=== PATIENT | male | born 1945 | race Caucasian/White ===

== ENCOUNTER 2017-08-18 15:30 | Emergency (ER) | payer OTHER, MEDICARE ==
[~2017-08-18] VITALS: Ht 185.4 cm; Wt 95.0 kg
[2017-08-18 15:34] VITALS: BP 130/74; PULSE 90; RESP 20; TEMP 98.7; O2SAT 95
[2017-08-18] MEDS ORDERED: RESP: ALBUTEROL 2.5 MG/IPRATROPIUM 0.5 MG NEB (SCH) NEB ONE (17:00)
--- NOTE | 2017-08-18 17:09 | PD ---
HPI Chief Complaint: Fall Time Seen by Provider: 16:45 Travel History International Travel<30 days: No Contact w/Intl Traveler<30days: No Traveled to known affect area: No History of Present Illness HPI This patient has history of major stroke that has left him with baseline left- sided paresis. He is wheelchair-bound. However his motorized wheelchair does not fit into his bathroom so he must walk into the bathroom without it. Patient had a fall today and lost his balance and stumbled without his wheelchair. He says that he struck his head. He denies LOC. He takes a daily aspirin. His says that the [place] physician wanted him to get a CT of his brain. He has shrapnel from [place] and not eligible for MRI. Symptom severity is moderate. He scraped up his upper and lower leg but no bony pain. Duration one day. No alleviating factors. No exacerbating factors. PFSH Social History Alcohol Use: No Tobacco Use: Yes Substance Use: No Allergies-Medications (Allergen,Severity, Reaction): Coded Allergies: diazepam (Verified Allergy, Unknown, 08/18/17) Reported Meds & Prescriptions Reported Meds & Active Scripts Active Reported Humulin N Inj (Insulin Human NPH) 1,000 Unit/10 Ml Vial Unknown Dose SQ Humulin N Inj (Insulin Human NPH) 1,000 Unit/10 Ml Vial 1 Units SQ Metformin (Metformin HCl) 1,000 Mg Tab 1,000 Mg PO DAILY With a meal Bupropion HCl 100 Mg Tab 100 Mg PO HS Aspirin 81 Mg Chew 81 Mg CHEW DAILY Metoprolol Tartrate 50 Mg Tab 50 Mg PO DAILY Fluoxetine (Fluoxetine HCl) 20 Mg Capsule 20 Mg PO DAILY Mirtazapine 45 Mg Tab 45 Mg PO HS Lisinopril 40 Mg Tab 40 Mg PO DAILY Review of Systems General / Constitutional: No: Fever Eyes: No: Visual changes HENT: No: Headaches Cardiovascular: No: Chest Pain or Discomfort Respiratory: No: Shortness of Breath Gastrointestinal: No: Abdominal Pain Genitourinary: No: Dysuria Musculoskeletal: Positive: Weakness, No: Pain Skin: No Rash Neurologic: Positive: Weakness Psychiatric: No: Depression Endocrine: No: Polydipsia Hematologic/Lymphatic: No: Easy Bruising Physical Exam Narrative GENERAL: Well-nourished, well-developed patient in no apparent distress. SKIN: Focused skin assessment reveals no rash and nodules. Skin is Warm and dry. HEAD: Atraumatic. Normocephalic. EYES: Pupils equal and round. No scleral icterus. No injection or drainage. ENT: No nasal bleeding or discharge. Mucous membranes pink and moist. NECK: Trachea midline. No JVD. CARDIOVASCULAR: Regular rate and rhythm. No murmur appreciated. RESPIRATORY: No accessory muscle use. Minor expiratory wheezing breath sounds equal bilaterally. GASTROINTESTINAL: Abdomen soft, non-tender, nondistended. Hepatic and splenic margins not palpable. MUSCULOSKELETAL: Left upper extremity is contracted. No clubbing. No cyanosis. No edema. NEUROLOGICAL: Awake and alert. No obvious cranial nerve deficits. Motor exam reveals paralysis of the left arm and major weakness of the left leg. Normal speech. PSYCHIATRIC: Appropriate mood and affect; insight and judgment normal. Data Data Last Documented VS Vital Signs Date Time Temp Pulse Resp B/P (MAP) Pulse Ox O2 Delivery O2 Flow Rate FiO2 08/18/17 18:51 88 20 137/86 (103) 98 Room Air 08/18/17 15:[address] Brain W/O Iv Contrast(Rout) (08/18/17 ) Albuterol-Ipratropium Neb (Duoneb Neb) (08/18/17 17:00) MDM Medical Decision Making Medical Screen Exam Complete: Yes Emergency Medical Condition: Yes Medical Record Reviewed: Yes Differential Diagnosis Contusion, concussion, COPD Narrative Course I have reviewed the patient's electronic medical record. Patient has COPD and has mild wheezing. He still continues to smoke. He requests a nebulizer treatment which we provided Brain CT shows encephalomalacia where his old stroke is but nothing new or acute Patient is at neurologic baseline He had a fall trying to navigate a paralyzed leg without his wheelchair in the bathroom I do not think this requires extensive neurologic or metabolic workup Stable for outpatient follow-up with his [facility] Diagnosis Primary Impression: Fall Qualified Codes: W19.XXXA - Unspecified fall, initial encounter Additional Impressions: History of stroke with residual deficit Head injury Qualified Codes: S09.90XA - Unspecified injury of head, initial encounter Additional Instructions: The patient was advised to follow up with their physician and return if they worsen. Med/Other Pt SpecificInfo: Other Disposition: DISCHARGE HOME Condition: Stable Oliver Monreal MD Aug 18, 2017 17:09
[2017-08-18] MEDS ORDERED: FLUO20CA12 PO (17:17)
[2017-08-18] MEDS ORDERED: INSU100V3 SQ (17:17)
[2017-08-18] MEDS ORDERED: METO50TA PO (17:17)
[2017-08-18] MEDS ORDERED: LISI40TA PO (17:17)
[2017-08-18] MEDS ORDERED: ASPI-516 CHEW (17:17)
[2017-08-18] MEDS ORDERED: BUPR100T4 PO (17:17)
[2017-08-18] MEDS ORDERED: MIRT45TA PO (17:17)
[2017-08-18] MEDS ORDERED: METF1000 PO (17:17)
--- NOTE | 2017-08-18 17:49 | RADRPT ---
EXAM DATE/TIME: 08/18/2017 17:36 [facility] COMPARISON: No previous studies available for comparison. INDICATIONS : Fall yesterday, hit head. RADIATION DOSE: 62.44 CTDIvol (mGy) MEDICAL HISTORY : Chronic obstructive pulmonary disease. Cerebrovascular disease. Fallen 6 times in the past month. CV A SURGICAL HISTORY : None. ENCOUNTER: Initial ACUITY: 2 days PAIN SCALE: 8/10 LOCATION: cranial TECHNIQUE: Multiple contiguous axial images were obtained of the head. Using automated exposure control and adj ustment of the mA and/or kV according to patient size, radiation dose was kept as low as reasonably a chievable to obtain optimal diagnostic quality images. DICOM format image data is available electro nically for review and comparison. FINDINGS: There is a large area of encephalomalacia involving the right frontal and parietal lobes with ex vacuo change involving the right lateral ventricle. There is no acute hemorrhage, mass effect or mid line shift. No extra-axial fluid collections are identified. The posterior fossa brainstem remain unr emarkable. The bone windows are within normal limits. CONCLUSION: 1. No acute hemorrhage, mass or evidence of acute infarction. 2. Large area of encephalomalacia involving the right middle cerebral artery territory most character istic of remote CVA. Reggie Gallardo MD on August 18, 2017 at 17:45 Board Certified Radiologist. This report was verified electronically.
[2017-08-18 18:51] VITALS: BP 137/86; PULSE 88; RESP 20; O2SAT 98
== END 2017-08-18 19:24 | disposition home or self-care (01) ==
LOC: PHED 15:30
DX: S09.90XA Unspecified injury of head, initial encounter (principal); I69.30 Unspecified sequelae of cerebral infarction; J44.9 Chronic obstructive pulmonary disease, unspecified; W01.10XA Fall on same level from slipping, tripping and stumbling with subsequent striking against unspecified object, initial encounter; Y92.002 Bathroom of unspecified non-institutional (private) residence as the place of occurrence of the external cause; Z72.0 Tobacco use; Z99.3 Dependence on wheelchair; Z88.8 Allergy status to other drugs, medicaments and biological substances; Z79.899 Other long term (current) drug therapy
CPT/HCPCS: 70450; 94664; 99283

== ENCOUNTER 2018-04-08 21:03 | Observation (INO) ==
[2018-04-08 21:21] VITALS: TEMP 97.8
--- NOTE | 2018-04-08 21:42 | XR ---
EXAM DATE: 04/08/2018 9:36 PM EST AGE/SEX: 72 years / Male INDICATIONS: Chest pain. CLINICAL DATA: This is the patient's subsequent encounter. Patient reports that signs and symptoms h ave been present for 1 day and indicates a pain score of 6/10. MEDICAL/SURGICAL HISTORY: None. None. COMPARISON: No prior exams available for comparison. FINDINGS: Lungs are symmetrically aerated. There is an ill-defined opacity in the right lower lung which may re present an infiltrate. The left lung is clear. The heart is normal in size. Both hemidiaphragms well delineated. Multiple metallic BBs project over the left upper quadrant. CONCLUSION: Small nonconsolidative infiltrate right lower lung. Electronically signed by: Kenny Romero MD 04/08/2018 9:41 PM EST
[2018-04-08 21:50] LABS: Baso % (Auto) 0.5 % (0.0-2.0); Eos # (Auto) 0.1 th/mm3 (0.0-0.4); Eos % (Auto) 1.7 % (0.0-4.0); Hematocrit 36.4 % (39.0-51.0); Lymph # (Auto) 1.7 th/mm3 (1.0-4.8); Mean Corpuscular HGB Conc 35.8 % (32.0-36.0); Mean Corpuscular Hemoglobin 29.4 pg (27.0-34.0); Mean Corpuscular Volume 82.1 fL (80.0-100.0); Mean Platelet Volume 7.1 fL (7.0-11.0); Mono # (Auto) 0.5 th/mm3 (0.0-0.9); Mono % (Auto) 6.7 % (0.0-8.0); Neut # (Auto) 5.7 th/mm3 (1.8-7.7); Neut % (Auto) 70.1 % (16.0-70.0); Platelet Count 278 th/mm3 (150-450); Red Blood Count 4.43 mil/mm3 (4.50-5.90); Red Cell Distribution Width 13.9 % (11.6-17.2); White Blood Count 8.1 th/mm3 (4.0-11.0)
--- NOTE | 2018-04-08 21:56 | ED ---
HPI General Chief complaint: Chest Pain Stated complaint: chest pain/evac Time Seen by Provider: 04/08/18 21:06 History of Present Illness HPI narrative: Patient is 72-year-old male with a history of diabetes sided deficits presents emergency department for evaluation of chest tightness that started in the center of his chest about an hour prior to arrival. Family member at home gave family members nitroglycerin to the patient which initially relieved his chest pain. EMS reported that on arrival the patient's blood pressure was quite low 60/40 but with some gentle fluid resuscitation is normalized. EMS speculated that the low blood pressure was transient from nitroglycerin administration. They also administered 325 aspirin prior to arrival. Patient states is never had pain like this before, denies a history of high blood pressure high cholesterol. He states never had a stress test or cardiac catheterization for. He was never told he had heart murmur. No shortness of breath no dizziness. No extremity pain no back pain. Symptoms moderate, resolved, associated signs symptoms in context as above. Related Data Home Medications Medication Instructions Recorded Confirmed aspirin [Aspir-81] 81 mg PO DAILY 04/08/18 04/08/18 duloxetine 60 mg PO DAILY 04/08/18 04/08/18 guaifenesin 400 mg PO DAILY PRN 04/08/18 04/08/18 hydralazine 50 mg 04/08/18 melatonin 3 mg PO HS PRN 04/08/18 04/08/18 metformin 500 mg PO BID 04/08/18 04/08/18 mirtazapine 45 mg PO HS 04/08/18 04/08/18 nitroglycerin 0.4 mg SUBLINGUAL Q5-15M PRN 04/08/18 04/08/18 omeprazole 20 mg PO DAILY 04/08/18 04/08/18 quetiapine mg PO HS 04/08/18 Allergies Allergy/AdvReac Type Severity Reaction Status Date / Time diazepam Allergy Unknown Agitation Verified 04/08/18 21:22 Review of Systems ROS: all other systems reviewed are negative [facility] Family History Family History Other Family history non-contributory Social History Social History Substance History: No History of Abuse Second Hand Smoke Exposure: No Smoking Status: Current every day smoker Tobacco Type: Cigarettes How Often Do You Have a Drink Containing Alcohol: Never Recent Travel in [facility] within the Last 8 Weeks: No Recent Out of Country Travel within the Last 8 Weeks: No Immunization History Tetanus Immunization: <5 Years Exam Narrative Exam Narrative: GENERAL: Well-developed well-nourished, no obvious distress. SKIN: Focused skin assessment warm/dry. HEAD: Atraumatic. Normocephalic. EYES: Pupils equal and round. No scleral icterus. No injection or drainage. ENT: No nasal bleeding or discharge. Mucous membranes pink and moist. NECK: Trachea midline. No JVD. CARDIOVASCULAR: Regular rate and rhythm. No murmur appreciated. RESPIRATORY: No accessory muscle use. Clear to auscultation. Breath sounds equal bilaterally. GASTROINTESTINAL: Abdomen soft, non-tender, nondistended. Hepatic and splenic margins not palpable. MUSCULOSKELETAL: No obvious deformities. No clubbing. No cyanosis. No edema. NEUROLOGICAL: Awake and alert and oriented. Cranial nerves II through XII are grossly intact and nonfocal. Patient is chronic contracture of the left upper extremity and is unable to use his extremity, he also has significant weakness of left lower extremity. PSYCHIATRIC: Appropriate mood and affect; insight and judgment normal. Course Initial Documented Vital Signs Temperature 97.8 F 04/08/18 21:14 Pulse Rate 97 H 04/08/18 21:14 Respiratory Rate 18 04/08/18 21:14 Blood Pressure 121/84 04/08/18 21:14 Pulse Oximetry 95 04/08/18 21:14 Last Documented Vital Signs Temperature 97.8 F 04/08/18 21:14 Pulse Rate 65 04/09/18 02:00 Respiratory Rate 20 04/09/18 03:44 Blood Pressure 118/62 04/09/18 03:44 Pulse Oximetry 96 04/09/18 03:44 Medical Decision Making [facility] Narrative Medical decision making narrative: Patient 72-year-old male with a history of stroke and diabetes has dependent on family for activities of daily living. Patient's initial EKG negative except for some Q waves in the inferior leads. Review of the EMS run sheets also show that the patient did have some runs of bigeminy which he was reported to be asymptomatic at that time. Awaiting for cardiac enzymes patient will be dispositioned for further cardiac workup as an observation patient at a minimum. Medical Screen Exam Complete: Yes Emergency Medical Condition: Yes Lab Data Result diagrams: 04/09/18 04:29 04/09/18 03:18 Lab Results 04/08/18 04/08/18 04/08/18 Range/Units 21:31 21:31 21:31 WBC 8.1 (4.0-11.0) th/mm3 RBC 4.43 L (4.50-5.90) mil/mm3 Hgb 13.0 (13.0-17.0) gm/dL Hct 36.4 L (39.0-51.0) % MCV 82.1 (80.0-100.0) fL MCH 29.4 (27.0-34.0) pg MCHC 35.8 (32.0-36.0) % RDW 13.9 (11.6-17.2) % Plt Count 278 (150-450) th/mm3 MPV 7.1 (7.0-11.0) fL Neut % (Auto) 70.1 H (16.0-70.0) % Lymph % (Auto) 21.0 (9.0-44.0) % [place] % (Auto) 6.7 (0.0-8.0) % Eos % (Auto) 1.7 (0.0-4.0) % Baso % (Auto) 0.5 (0.0-2.0) % Neut # (Auto) 5.7 (1.8-7.7) th/mm3 Lymph # (Auto) 1.7 (1.0-4.8) th/mm3 [place] # (Auto) 0.5 (0.0-0.9) th/mm3 Eos # (Auto) 0.1 (0.0-0.4) th/mm3 Baso # (Auto) 0.0 (0.0-0.2) th/mm3 WBC Differential . Differential Comment Auto diff final PT (9.8-11.6) sec INR Ratio APTT (23.4-31.7) sec Sodium 139 (136-145) meq/L Potassium 2.9 L* (3.5-5.1) meq/L Chloride 103 (98-107) meq/L Carbon Dioxide 28.0 (21.0-32.0) meq/L Anion Gap 8 (5-15) meq/L BUN 9 (7-18) mg/dL Creatinine 1.11 (0.60-1.30) mg/dL Estimated GFR 65 L (>89) mL/min Random Glucose 125 H (74-106) mg/dL Calcium 10.4 H (8.5-10.1) mg/dL Magnesium (1.5-2.5) mg/dL Total Bilirubin 0.3 (0.2-1.0) mg/dL AST 18 (15-37) U/L ALT 26 (12-78) U/L Alkaline Phosphatase 54 (45-117) U/L Total Creatine Kinase (39-308) U/L Troponin I Less than 0.02 L (0.02-0.05) ng/mL B-Natriuretic Peptide 22 (0-100) pg/mL Total Protein 7.1 (6.4-8.2) g/dL Albumin 3.4 (3.4-5.0) g/dL 04/08/18 04/08/18 04/09/18 Range/Units 21:31 23:55 03:18 WBC (4.0-11.0) th/mm3 RBC (4.50-5.90) mil/mm3 Hgb (13.0-17.0) gm/dL Hct (39.0-51.0) % MCV (80.0-100.0) fL MCH (27.0-34.0) pg MCHC (32.0-36.0) % RDW (11.6-17.2) % Plt Count (150-450) th/mm3 MPV (7.0-11.0) fL Neut % (Auto) (16.0-70.0) % Lymph % (Auto) (9.0-44.0) % [place] % (Auto) (0.0-8.0) % Eos % (Auto) (0.0-4.0) % Baso % (Auto) (0.0-2.0) % Neut # (Auto) (1.8-7.7) th/mm3 Lymph # (Auto) (1.0-4.8) th/mm3 [place] # (Auto) (0.0-0.9) th/mm3 Eos # (Auto) (0.0-0.4) th/mm3 Baso # (Auto) (0.0-0.2) th/mm3 WBC Differential Differential Comment PT 11.2 (9.8-11.6) sec INR 1.1 Ratio APTT 25.3 (23.4-31.7) sec Sodium 140 (136-145) meq/L Potassium 4.0 D (3.5-5.1) meq/L Chloride 104 (98-107) meq/L Carbon Dioxide 26.5 (21.0-32.0) meq/L Anion Gap 10 (5-15) meq/L BUN 9 (7-18) mg/dL Creatinine 1.10 (0.60-1.30) mg/dL Estimated GFR 66 L (>89) mL/min Random Glucose 117 H (74-106) mg/dL Calcium 9.7 (8.5-10.1) mg/dL Magnesium 1.2 L (1.5-2.5) mg/dL Total Bilirubin (0.2-1.0) mg/dL AST (15-37) U/L ALT (12-78) U/L Alkaline Phosphatase (45-117) U/L Total Creatine Kinase 49 52 (39-308) U/L Troponin I 0.13 H 0.15 H (0.02-0.05) ng/mL B-Natriuretic Peptide (0-100) pg/mL Total Protein (6.4-8.2) g/dL Albumin (3.4-5.0) g/dL 04/09/18 Range/Units 04:29 WBC 7.7 (4.0-11.0) th/mm3 RBC 4.46 L (4.50-5.90) mil/mm3 Hgb 12.9 L (13.0-17.0) gm/dL Hct 37.2 L (39.0-51.0) % MCV 83.4 (80.0-100.0) fL MCH 28.9 (27.0-34.0) pg MCHC 34.6 (32.0-36.0) % RDW 14.0 (11.6-17.2) % Plt Count 258 (150-450) th/mm3 MPV 6.8 L (7.0-11.0) fL Neut % (Auto) 66.3 (16.0-70.0) % Lymph % (Auto) 24.9 (9.0-44.0) % [place] % (Auto) 5.9 (0.0-8.0) % Eos % (Auto) 2.0 (0.0-4.0) % Baso % (Auto) 0.9 (0.0-2.0) % Neut # (Auto) 5.1 (1.8-7.7) th/mm3 Lymph # (Auto) 1.9 (1.0-4.8) th/mm3 [place] # (Auto) 0.4 (0.0-0.9) th/mm3 Eos # (Auto) 0.2 (0.0-0.4) th/mm3 Baso # (Auto) 0.1 (0.0-0.2) th/mm3 WBC Differential . Differential Comment Auto diff final PT (9.8-11.6) sec INR Ratio APTT (23.4-31.7) sec Sodium (136-145) meq/L Potassium (3.5-5.1) meq/L Chloride (98-107) meq/L Carbon Dioxide (21.0-32.0) meq/L Anion Gap (5-15) meq/L BUN (7-18) mg/dL Creatinine (0.60-1.30) mg/dL Estimated GFR (>89) mL/min Random Glucose (74-106) mg/dL Calcium (8.5-10.1) mg/dL Magnesium (1.5-2.5) mg/dL Total Bilirubin (0.2-1.0) mg/dL AST (15-37) U/L ALT (12-78) U/L Alkaline Phosphatase (45-117) U/L Total Creatine Kinase (39-308) U/L Troponin I (0.02-0.05) ng/mL B-Natriuretic Peptide (0-100) pg/mL Total Protein (6.4-8.2) g/dL Albumin (3.4-5.0) g/dL Imaging Data Radiologist's impression: Chest X-Ray 04/08/18 21:10 CONCLUSION: Small nonconsolidative infiltrate right lower lung. Discharge Plan Discharge Disposition Patient Disposition: 07 Against Medical Advice Discharge Order Discharge Orders: AMA Discharge (Routine); Ordered 04/09/18 Ordered By: [facility] Team ED Provider: Josh uDtta Primary Care Provider: [facility]Physician 's Attending Provider: Jesse Villagomez Other Providers: [place] Hernández Camille Status ED Status: Left Department Discharge Information Discharge Date/Time: 04/08/18 23:22
[2018-04-08 22:04] LABS: Activated Partial Thrombo Time 25.3 sec (23.4-31.7); INR 1.1 Ratio; Prothrombin Time 11.2 sec (9.8-11.6)
[2018-04-08 22:08] LABS: Anion Gap 8 meq/L (5-15)
[2018-04-08 22:11] LABS: Alanine Aminotransferase 26 U/L (12-78); Albumin 3.4 g/dL (3.4-5.0); Alkaline Phosphatase 54 U/L (45-117); Aspartate Aminotransferase 18 U/L (15-37); Blood Urea Nitrogen 9 mg/dL (7-18); Calcium 10.4 mg/dL (8.5-10.1); Chloride 103 meq/L (98-107); Glomerular Filtration Rate 65 mL/min (>89); Glucose,Random 125 mg/dL (74-106); Sodium 139 meq/L (136-145); Total Protein 7.1 g/dL (6.4-8.2)
[2018-04-08 22:12] LABS: Potassium 2.9 meq/L (3.5-5.1)
[2018-04-08 23:41] VITALS: RESP 20
[2018-04-09 00:19] LABS: Troponin I 0.13 ng/mL (0.02-0.05)
[2018-04-09 02:47] VITALS: PULSE 65
[2018-04-09 03:45] VITALS: BP 118/62; O2SAT 96
[2018-04-09] MEDS ORDERED: Acetaminophen 500 MG Tablet PO PRN (04:07)
--- NOTE | 2018-04-09 04:12 | P.HPIM ---
History of Present Illness Service: [facility] hospitalists . Primary Care Physician: [facility] Chief Complaint: Chest pain History of Present Illness: Mr. Roman is a 72-year-old male with a history of COPD and CVA with left- sided deficits who presents to the emergency room on 04/08/2018 complaining of severe chest pain. He was given nitroglycerin sublingual by a family member at home and suffered hypotension following though it did relieve his chest discomfort. His initial troponin I was 0.02 and he was admitted to the chest pain center for evaluation given the absence of any personal history of coronary artery disease and normal troponin. However, when his troponin increased to 0.13, the hospitalist service was asked to admit the patient for further evaluation and medical management. Upon arrival to the patient's room, he tells me that he no longer has any chest pain and would like to follow up with his drawbench operator helper in [facility]. He wants to call his to take him home (he cannot drive himself due to left-sided deficits from a CVA). I extensively reviewed his medical problem with him and advised him that we believe he is may be having an NC/heart attack and he will very likely suffer and/or disability if he leaves. He tells me he is willing to take that chance and prefers to see his regular doctor. I have advised that we will be consulting a drawbench operator helper here to evaluate him but he does not want to wait for that. He is able to tell me where he is, what is going on, what his medical history is, the month, date, year, president, and where he lives and where he seeks normal medical treatment. Unfortunately, I cannot hold him against his will but he is unable to leave without help. His may be able to sway his mind. . Review of Systems All other systems reviewed negative except as stated in HPI PMFSH - History History Provided By: Patient - Medical History Medical History: Medical History (Last Reviewed 04/09/18 @ 04:11 by LISA Ortez) COPD (chronic obstructive pulmonary disease) Stroke - Surgical History Surgical History: Surgical History (Last Reviewed 04/09/18 @ 04:11 by LISA Ortez) No history of previous surgery - Family History Family History: Family History (Last Updated 04/09/18 @ 04:52 by LISA Ortez) Other Family history non-contributory - Social History I have reviewed the patient's Social History: Yes - Tobacco History Second Hand Smoke Exposure: No Tobacco Use In Past 30 Days: Yes Smoking Status: Current every day smoker Tobacco Type: Cigarettes - Alcohol History How Often Do You Have a Drink Containing Alcohol: Never - Substance Use History Substance History: No History of Abuse - Travel History Recent Travel in the [place] Within the Last 8 Weeks: No Recent Travel Out of the Country Within the Last 8 Weeks: No - Immunization History Tetanus Immunization: <5 Years Medications and Allergies Active Medications: Active Medications Sodium Chloride (Ns Flush) 2 ml IV.FLUSH UNSCH PRN PRN Reason: FLUSH AFTER USING IV ACCESS Sodium Chloride (Ns Flush) 2 ml IV.FLUSH BID OSMAN Sodium Chloride (Ns Flush) 2 ml IV.FLUSH PRN PRN PRN Reason: FLUSH AFTER USING IV ACCESS Allergies Allergy/AdvReac Type Severity Reaction Status Date / Time diazepam Allergy Unknown Agitation Verified 04/08/18 21:22 Home Medications Medication Instructions Recorded Confirmed Type aspirin [Aspir-81] 81 mg PO DAILY 04/08/18 04/08/18 History duloxetine 60 mg PO DAILY 04/08/18 04/08/18 History guaifenesin 400 mg PO DAILY PRN 04/08/18 04/08/18 History hydralazine 50 mg 04/08/18 History melatonin 3 mg PO HS PRN 04/08/18 04/08/18 History metformin 500 mg PO BID 04/08/18 04/08/18 History mirtazapine 45 mg PO HS 04/08/18 04/08/18 History nitroglycerin 0.4 mg SUBLINGUAL Q5-15M PRN 04/08/18 04/08/18 History omeprazole 20 mg PO DAILY 04/08/18 04/08/18 History quetiapine mg PO HS 04/08/18 History Exam Vital signs: Vital Signs 04/08/18 21:14 04/08/18 21:23 04/08/18 22:05 Temperature 97.8 F Pulse Rate 97 H 76 Respiratory Rate 18 17 Blood Pressure 121/84 112/64 Pulse Oximetry 95 93 L 94 L 04/08/18 23:00 04/08/18 23:40 04/09/18 02:00 Temperature Pulse Rate 68 75 65 Respiratory Rate 17 20 Blood Pressure 105/53 L 113/59 L Pulse Oximetry 97 92 L 04/09/18 03:44 Temperature Pulse Rate Respiratory Rate 20 Blood Pressure 118/62 Pulse Oximetry 96 Intake & Output 04/08/18 04/08/18 04/09/18 06:59 18:59 06:59 Weight 92.079 kg Other: Date of Last Bowel Movement 04/08/18 Weight On Admission 92.079 kg Narrative: GENERAL: This is a well nourished older male who is alert and oriented to time, place, and situation. SKIN: No rashes. Cool and dry. HEAD: Atraumatic. Normocephalic. EYES: No scleral icterus. No injection or drainage. ENT: Nose without bleeding, purulent drainage. NECK: Trachea midline. No JVD. CARDIOVASCULAR: Regular rate and rhythm without murmurs, gallops, or rubs. RESPIRATORY: Clear to auscultation. Breath sounds equal bilaterally. No wheezes , rales, or rhonchi. GASTROINTESTINAL: Abdomen soft, non-tender, nondistended. No guarding. MUSCULOSKELETAL: Extremities without clubbing, cyanosis. No calf tenderness. NEUROLOGICAL: Awake and alert x 3, cognizant of situation. Left hemiparesis. Normal speech. . Results - Labs CBC & Chem 7: 04/09/18 04:29 04/08/18 21:31 Labs: Short CBC 04/08/18 Range/Units 21:31 WBC 8.1 (4.0-11.0) th/mm3 Hgb 13.0 (13.0-17.0) gm/dL Hct 36.4 L (39.0-51.0) % Plt Count 278 (150-450) th/mm3 [facility] 04/08/18 21:31 Sodium 139 Potassium 2.9 L* Chloride 103 Carbon Dioxide 28.0 BUN 9 Creatinine 1.11 Calcium 10.4 H Cardiac Enzymes 04/08/18 04/08/18 Range/Units 21:31 23:55 Total Creatine Kinase 49 (39-308) U/L Troponin I Less than 0.02 L 0.13 H (0.02-0.05) ng/mL Liver Function 04/08/18 Range/Units 21:31 Total Bilirubin 0.3 (0.2-1.0) mg/dL AST 18 (15-37) U/L ALT 26 (12-78) U/L Alkaline Phosphatase 54 (45-117) U/L Albumin 3.4 (3.4-5.0) g/dL - Imaging Impressions Chest X-Ray 04/08/18 21:10 CONCLUSION: Small nonconsolidative infiltrate right lower lung. Caprini VTE Risk Assessment Caprini VTE Risk Assessment: Moderate/High Risk (score >= 2) Caprini Risk Assessment Model: Point Value = 1 Point Value = 2 Point Value = 3 Point Value = 5 Age 41-60 Minor surgery BMI > 25 kg/m2 Swollen legs Varicose veins or History of unexplained or recurrent spontaneous Oral contraceptives or hormone replacement Sepsis (< 1 month) Serious lung disease, including pneumonia (< 1 month) Abnormal pulmonary function Acute myocardial infarction Congestive heart failure (< 1 month) History of inflammatory bowel disease Medical patient at bed rest Age 61-74 Arthroscopic surgery Major open surgery (> 45 min) Laparoscopic surgery (> 45 min) Malignancy Confined to bed (> 72 hours) Immobilizing plaster cast Central venous access Age >= 75 History of VTE Family history of VTE Factor V Leiden Prothrombin [id number] Lupus anticoagulant Anticardiolipin antibodies Elevated serum homocysteine Heparin-induced thrombocytopenia Other congenital or acquired thrombophilia Stroke (< 1 month) Elective arthroplasty Hip, pelvis, or leg fracture Acute spinal cord injury (< 1 month) Prophylaxis Regimen: Total Risk Factor Score Risk Level Prophylaxis Regimen 0-1 Low Early ambulation 2 Moderate Order ONE of the following: *Sequential Compression Device (SCD) *Heparin 5000 units SQ BID 3-4 Higher Order ONE of the following medications: *Heparin 5000 units SQ TID *Enoxaparin/Lovenox 40 mg SQ daily (WT < 150 kg, CrCl > 30 mL/min) *Enoxaparin/Lovenox 30 mg SQ daily (WT < 150 kg, CrCl > 10-29 mL/min) *Enoxaparin/Lovenox 30 mg SQ BID (WT < 150 kg, CrCl > 30 mL/min) AND/OR *Sequential Compression Device (SCD) 5 or more Highest Order ONE of the following medications: *Heparin 5000 units SQ TID (Preferred with Epidurals) *Enoxaparin/Lovenox 40 mg SQ daily (WT < 150 kg, CrCl > 30 mL/min) *Enoxaparin/Lovenox 30 mg SQ daily (WT < 150 kg, CrCl > 10-29 mL/min) *Enoxaparin/Lovenox 30 mg SQ BID (WT < 150 kg, CrCl > 30 mL/min) AND *Sequential Compression Device (SCD) Assessment and Plan - Plan Mr. Roman is a 72-year-old male with a history of COPD and CVA with left- sided deficits who presents to the emergency room on 04/08/2018 complaining of severe chest pain. He was given nitroglycerin sublingual by a family member at home and suffered hypotension following though it did relieve his chest discomfort. His initial troponin I was 0.02 and he was admitted to the chest pain center for evaluation given the absence of any personal history of coronary artery disease and normal troponin. However, when his troponin increased to 0.13, though he was no longer experiencing chest pain, the hospitalist service was asked to admit the patient for further evaluation and medical management. The patient is wanting to leave [place]. This patient has the capacity to refuse care and understands the risks of leaving, including permanent disability and/or , and has had an opportunity to ask questions about his/her condition. The patient has been informed that he/she may return for care at any time, and follow up has been arranged/advised. He plans to see his [facility] draw[facility] operator helper. However, he must get his to pick him up first. If she can get him to stay , the following is the plan of care: N-STEMI -Continue serial EKGs and cardiac enzymes -Consult cardiology -appreciate assistance -Nitroglycerin sublingual as needed chest pain -N.p.o. Hypokalemia -Potassium 2.9 on admission -Replaced orally -Recheck level and replace as indicated Hypercalcemia -Initial calcium 10.4 -etiology uncertain -Recheck level in a.m. -further workup pending that result COPD -Oxygen saturation running from 92-96 on 2 L nasal cannula -Duonebs PRN for shortness of breath/wheezing DVT prophylaxis -Heparin 5000 units subq q8h Discussed Condition With: Dr. Lezama, H&P: Quality - VTE Deep Vein Thrombosis/Pulmonary Embolism Present on Admission: No
[2018-04-09] MEDS ORDERED: Morphine Sulfate Inj 2 MG/ML Vial IV.PUSH PRN (04:15)
[2018-04-09 04:43] LABS: Baso # (Auto) 0.1 th/mm3 (0.0-0.2); Baso % (Auto) 0.9 % (0.0-2.0); Eos # (Auto) 0.2 th/mm3 (0.0-0.4); Hematocrit 37.2 % (39.0-51.0); Hemoglobin 12.9 gm/dL (13.0-17.0); Lymph # (Auto) 1.9 th/mm3 (1.0-4.8); Lymph % (Auto) 24.9 % (9.0-44.0); Mean Corpuscular HGB Conc 34.6 % (32.0-36.0); Mean Corpuscular Hemoglobin 28.9 pg (27.0-34.0); Mean Corpuscular Volume 83.4 fL (80.0-100.0); Mean Platelet Volume 6.8 fL (7.0-11.0); Mono # (Auto) 0.4 th/mm3 (0.0-0.9); Mono % (Auto) 5.9 % (0.0-8.0); Neut # (Auto) 5.1 th/mm3 (1.8-7.7); Neut % (Auto) 66.3 % (16.0-70.0); Platelet Count 258 th/mm3 (150-450); Red Blood Count 4.46 mil/mm3 (4.50-5.90); White Blood Count 7.7 th/mm3 (4.0-11.0)
[2018-04-09] MEDS ORDERED: Sodium Chloride 0.9% 2 ML Flush PRN IV.FLUSH (04:49)
[2018-04-09 05:02] LABS: Calcium 9.7 mg/dL (8.5-10.1); Carbon Dioxide 26.5 meq/L (21.0-32.0); Magnesium 1.2 mg/dL (1.5-2.5); Troponin I 0.15 ng/mL (0.02-0.05)
[2018-04-09] MEDS ORDERED: Heparin - SQ 10,000 UNITS/ML Vial SQ SCH (06:00)
[2018-04-09] MEDS ORDERED: Sodium Chloride 0.9% 2 ML Flush BID IV.FLUSH SCH (09:00)
--- NOTE | 2018-04-09 17:29 | ECG ---
Date Performed: 04/09/2018 Time Performed: 00:41:17 PTAGE: 72 years EKG: Sinus rhythm NORMAL ECG Since the PREVIOUS TRACING , no significant change noted DOCTOR: Jenny Lennon Interpretating Date/Time 04/09/2018 17:28:06
--- NOTE | 2018-04-09 17:36 | ECG ---
Date Performed: 04/08/2018 Time Performed: 21:13:14 PTAGE: 72 years EKG: Sinus rhythm INFERIOR MYOCARDIAL INFARCTION POSSIBLE ANTEROLATERAL MYOCARDIAL INFARCTION ABNORMAL ECG NO PREVIOUS TRACING DOCTOR: Jenny Lennon Interpretating Date/Time 04/09/2018 17:35:08
== END 2018-04-09 06:40 | disposition left against medical advice (07) ==
LOC: NEDA 21:03 → NEPD 21:03 → NEPHCDU 23:10
PROVIDERS: ADMIT Internal Medicine; ATTEND Internal Medicine
DX: E83.52 Hypercalcemia; F17.210 Nicotine dependence, cigarettes, uncomplicated; R07.89 Other chest pain; R91.8 Other nonspecific abnormal finding of lung field; E87.6 Hypokalemia; J44.9 Chronic obstructive pulmonary disease, unspecified; Z86.73 Personal history of transient ischemic attack (TIA), and cerebral infarction without residual deficits; I21.4 Non-ST elevation (NSTEMI) myocardial infarction; Z79.82 Long term (current) use of aspirin; E11.9 Type 2 diabetes mellitus without complications; Z79.899 Other long term (current) drug therapy